=== PATIENT | female | born 1995 | race Caucasian/White ===

== ENCOUNTER 2019-08-23 17:30 | Emergency (ER) | payer BC, SELFPAY ==
[~2019-08-23] VITALS: Ht 162.6 cm; Wt 63.5 kg
[2019-08-23 17:42] VITALS: Ht 162.6 cm; Wt 63.5 kg
[2019-08-23 18:26] VITALS: BP 121/80
== END 2019-08-23 18:26 | disposition home or self-care (01) ==
LOC: ED 17:30
DX: M79.10 Myalgia, unspecified site (principal); R50.9 Fever, unspecified; J02.9 Acute pharyngitis, unspecified; Z20.828 Contact with and (suspected) exposure to other viral communicable diseases
CPT/HCPCS: U0003-CS